=== PATIENT | male | born 1965 | race Caucasian/White ===

== ENCOUNTER 2025-07-20 14:41 | Outpatient (CLI) | payer MEDICARE | END 2025-07-20 14:42 | disposition home or self-care (01) | LOC: BICRAD 14:41 | PROVIDERS: ATTEND Family Medicine | DX: S16.1XXA Strain of muscle, fascia and tendon at neck level, initial encounter (principal); M47.813 Spondylosis without myelopathy or radiculopathy, cervicothoracic region; M47.812 Spondylosis without myelopathy or radiculopathy, cervical region | CPT/HCPCS: 72050; 72072 ==